=== PATIENT | female | born 1985 | race American Indian/Alaskan Native ===

== ENCOUNTER 2018-08-01 15:56 | Outpatient (CLI) | payer OTHER ==
--- NOTE | 2018-08-01 18:39 | XRay Report ---
FINAL REPORT EXAM: XR KNEE 3V LT HISTORY: knee pain TECHNIQUE: Frontal, lateral and oblique views left knee Comparison: None FINDINGS: There is no evidence of fracture, subluxation, lytic or blastic change or periosteal reaction. The joint spaces are maintained. The soft tissues are unremarkable. IMPRESSION: 1. No plain film evidence of bony or soft tissue abnormality.
--- NOTE | 2018-08-01 18:40 | XRay Report ---
FINAL REPORT EXAM: XR HIP 2-3V RT HISTORY: RIGHT HIP PAIN TECHNIQUE: Frontal view of the pelvis and hips and frontal and frog-lateral views right hip Comparison: None FINDINGS: The bony structures are without evidence of fracture, subluxation, lytic or blastic change or periosteal reaction. The hip joints are maintained. The soft tissues are unremarkable. IMPRESSION: 1. No plain film evidence of bony or soft tissue abnormality.
== END 2018-08-01 15:57 | disposition home or self-care (01) ==
LOC: XRAY 15:56
PROVIDERS: ATTEND Internal Medicine
DX: Z02.71 Encounter for disability determination (principal); M25.562 Pain in left knee; M25.551 Pain in right hip